=== PATIENT | male | born 1960 | race Caucasian/White ===

== ENCOUNTER 2021-08-14 00:38 | Observation (INO) ==
[2021-08-14] MEDS ORDERED: 0.9 % Sodium Chloride 1,000 ML IVC ONE (01:11)
[2021-08-14] MEDS ORDERED: Ketorolac 15 MG/ML VIAL IVP ONE (01:11)
[2021-08-14] MEDS ORDERED: Ondansetron 4 MG/2 ML VIAL IVP ONE (01:11)
[2021-08-14] MEDS ORDERED: Isovue-370 500 ML BOTTLE IVP ONE (01:11)
[2021-08-14 02:09] LABS: Basophils # 0.1 K/mcL (0.0-0.2); Basophils % 1.1 %; Eosinophils # 0.4 K/mcL (0.0-0.6); Eosinophils % 3.5 %; Hematocrit 41.7 % (37.5-50.1); Hemoglobin 14.4 g/dL (12.9-16.9); Immature Granulocytes % 0.3 % (0-4); Lymphocytes # 3.6 K/mcL (0.6-4.6); Lymphocytes % 33.8 %; Mean Corpuscular HGB Conc 34.5 g/dL (31.6-35.5); Mean Corpuscular Hemoglobin 31.3 pg (28.0-33.3); Mean Corpuscular Volume 90.7 fL (83.0-100.0); Monocytes # 0.8 K/mcL (0.0-1.3); Monocytes % 7.9 %; Neutrophils # 5.6 K/mcL (1.6-8.9); Platelet Count 300 K/mcL (140-400); Red Cell Distribution Width 12.6 % (11.5-14.5); Segmented Neutrophils % 53.4 %; White Blood Count 10.6 K/mcL (4.3-11.1)
[2021-08-14 02:17] LABS: Bilirubin,Urine Negative (Negative); Blood,Urine Negative (Negative); Clarity,Urine Turbid (Clear); Color,Urine Light-Yellow (Yellow); Glucose,Urine (UA) Normal (Normal); Ketones,Urine Negative (Negative); Leukocyte Esterase,Urine Negative (Negative); Nitrite,Urine Negative (Negative); PH,Urine 7.5 pH Units (5.0-8.0); Protein,Urine Negative (Neg-Trace); RBC,Urine 0-3 per hpf (0-3); Specific Gravity,Urine 1.013 (1.010-1.025); Urobilinogen,Urine Normal (Normal); WBC,Urine 0-3 per hpf (0-3)
[2021-08-14 02:28] LABS: Alanine Aminotransferase 10 Units/L (7-52); Albumin 4.4 g/dL (3.5-5.7); Albumin/Globulin Ratio 1.5 (1.1-2.2); Alkaline Phosphatase 60 Units/L (34-104); Aspartate Amino Transferase 14 Units/L (13-39); BUN/Creatinine Ratio 14 (6-26); Bilirubin,Direct 0.1 mg/dL (0.0-0.2); Bilirubin,Indirect 0.2 mg/dL (0.0-1.0); Bilirubin,Total 0.3 mg/dL (0.3-1.0); Blood Urea Nitrogen 15 mg/dL (6-20); Calcium 10.1 mg/dL (8.6-10.3); Carbon Dioxide 26 mEq/L (23-29); Chloride 103 mEq/L (98-107); Globulin 2.9 g/dL (2.4-3.5); Glucose 123 mg/dL (70-105); Lipase 18 Units/L (11-82); Osmolality,Calculated 288 (280-300); Potassium 3.4 mEq/L (3.5-5.1); Sodium 138 mEq/L (136-145); Total Protein 7.3 g/dL (6.4-8.9); eGFR For African Americans > 60 (> 60); eGFR For Non-African Americans > 60 (> 60)
[2021-08-14] MEDS ORDERED: Ondansetron 4 MG/2 ML VIAL IVP PRN ×3 (03:50→13:31)
[2021-08-14] MEDS ORDERED: Ibuprofen 600 MG TABLET PO PRN (03:50)
[2021-08-14] MEDS ORDERED: Ketorolac 30 MG/ML VIAL IVP PRN (03:50)
[2021-08-14] MEDS: 0.9 % Sodium Chloride 1,000 ML IVC SCH ×4 (05:54→23:41)
[2021-08-14] MEDS ORDERED: Piperacillin/Tazobactam 3.375 GM in 0.9 % Sodium Chloride Mini Bag 100 ML IVPB SCH (08:00)
[2021-08-14] MEDS ORDERED: *HR* FentaNYL (PF) 100 MCG/2 ML VIAL ONE (10:48)
[2021-08-14] MEDS ORDERED: *HR* Rocuronium Bromide 50 MG/5 ML VIAL ONE (10:48)
[2021-08-14] MEDS ORDERED: Lidocaine -MPF 2% 5 ML VIAL ONE (10:48)
[2021-08-14] MEDS ORDERED: Lidocaine -MPF 4% 5 ML AMPUL ONE (10:48)
[2021-08-14] MEDS ORDERED: Ondansetron 4 MG/2 ML VIAL ONE (10:48)
[2021-08-14] MEDS ORDERED: *HR* Propofol 200 MG/20 ML VIAL IVP ONE (10:49)
[2021-08-14] MEDS ORDERED: Albuterol 2.5 MG/3 ML NEBULIZER IH PRN (11:33)
[2021-08-14] MEDS ORDERED: Naloxone 0.4 MG/ML INJ IVP PRN ×2 (11:33→13:31)
[2021-08-14] MEDS ORDERED: *HR* HYDROmorphone (PF) 1 MG/ML SYRINGE IVP PRN (11:33)
[2021-08-14] MEDS ORDERED: *HR* FentaNYL (PF) 100 MCG/2 ML VIAL IVP PRN (11:33)
[2021-08-14] MEDS ORDERED: Nitroglycerin 0.4 MG TAB.SUBL SL PRN (11:33)
[2021-08-14] MEDS ORDERED: *HR* HYDROMORPHONE 2 MG/ML VIAL ONE (12:21)
[2021-08-14] MEDS ORDERED: *HR* Magnesium Sulfate 1 GM/2 ML VIAL ONE (12:22)
[2021-08-14] MEDS ORDERED: Sugammadex Sodium 200 MG/2 ML VIAL IV ONE (12:30)
[2021-08-14] MEDS ORDERED: HYDROcodone BIT/Homatropine 5 MG TABLET PO PRN (13:31)
[2021-08-14] MEDS: Piperacillin/Tazobactam 3.375 GM in 0.9 % Sodium Chloride Mini Bag 100 ML IVPB SCH ×2 (16:02→23:40)
[2021-08-14] MEDS: Nicotine 21 MG PATCH.TD24 TD SCH (16:07)
[2021-08-14] MEDS ORDERED: *HR* HYDROcodone/Acet 5/325 mg TABLET PO PRN (18:14)
[2021-08-14] MEDS ORDERED: *HR* HYDROmorphone 2 MG TABLET PO PRN (18:39)
[2021-08-14] MEDS: Ketorolac 15 MG/ML VIAL IVP SCH (23:39)
[2021-08-15] MEDS: Ketorolac 15 MG/ML VIAL IVP SCH ×2 (05:59→11:26)
[2021-08-15 07:17] VITALS: O2SAT 92
[2021-08-15] MEDS: Nicotine 21 MG PATCH.TD24 TD SCH (07:30)
[2021-08-15] MEDS: Piperacillin/Tazobactam 3.375 GM in 0.9 % Sodium Chloride Mini Bag 100 ML IVPB SCH (07:56)
[2021-08-15 11:07] VITALS: BP 145/71; PULSE 69; TEMP 98
[2021-08-15] MEDS: 0.9 % Sodium Chloride 1,000 ML IVC SCH (11:30)
== END 2021-08-15 13:20 | disposition home or self-care (01) ==
LOC: 3BNU 00:38 → EMEROOARM 00:38 → 3BNU 04:15
PROVIDERS: ADMIT Surgery; ATTEND Surgery